=== PATIENT | female | born 1930 | race Caucasian/White ===

== ENCOUNTER 2018-02-10 14:19 | Emergency (ER) | payer MEDICARE, BC ==
[2018-02-10 15:51] LABS: CHLORIDE,CL 105 mmol/L (98-107); SODIUM,NA 143 mmol/L (136-145)
--- NOTE | 2018-02-10 17:25 | EDM.PDOC ---
ED HPI GENERAL MEDICAL PROBLEM - General Chief Complaint: General Stated Complaint: NOT FEELING GOOD Time Seen by Provider: 02/10/18 14:35 Source of Information: Reports: Patient - History of Present Illness INITIAL COMMENTS - FREE TEXT/NARRATIVE: Pt. presents to ER with complaints that she "doesn't feel good". States that she is unable to relay what specific systems she is having. States that she feels somewhat fatigued, possibly a bit globally weak. No fever or chills. Denies cough or dyspnea. No chest pain. difficulty with speech or walking. Denies any issues with recent illness. - Related Data Allergies Allergy/AdvReac Type Severity Reaction Status Date / Time amitriptyline [From Triavil] Allergy Rash Verified 02/10/18 14:43 apixaban [From Eliquis] Allergy Confusion Verified 02/10/18 14:43 brimonidine [From Alphagan P] Allergy Cannot Verified 02/10/18 14:43 Remember celecoxib [From Celebrex] Allergy Headache Verified 02/10/18 14:43 cephalexin [From Keflex] Allergy Cannot Verified 02/10/18 14:43 Remember ethinyl estradiol Allergy Rash Verified 02/10/18 14:43 [From Demulen (28)] ethynodiol Allergy Rash Verified 02/10/18 14:43 [From Demulen (28)] latanoprost [From Xalatan] Allergy Cannot Verified 02/10/18 14:43 Remember milk Allergy Vomiting Verified 02/10/18 14:43 Penicillins Allergy Rash Verified 02/10/18 14:43 perflutren [From Definity] Allergy Cannot Verified 02/10/18 14:43 Remember perphenazine [From Triavil] Allergy Rash Verified 02/10/18 14:43 Sulfa (Sulfonamide Allergy Cannot Verified 02/10/18 14:43 Antibiotics) Remember triamcinolone Allergy Rash Verified 02/10/18 14:43 pet dander Allergy Cannot Uncoded 02/10/18 14:43 Remember Home Meds: Home Meds Acetaminophen [Tylenol Extra Strength] 1,000 mg PO Q8H PRN 02/10/18 [History] Calcium Carb & Citrate/Vit D3 [Citracal + D ER] 1 each PO BID 02/10/18 [History] Cholecalciferol (Vitamin D3) [Vitamin D3] 1,000 unit PO DAILY 02/10/18 [History] Cholestyramine (With Sugar) [Questran Powder] 4 gm PO DAILY 02/10/18 [History] Levothyroxine [Sythroid] 100 mcg PO DAILY 02/10/18 [History] Loratadine [Claritin] 10 mg PO DAILY PRN 02/10/18 [History] Multivits,Ca,Minerals/Iron/FA [Thera-M] 1 each PO DAILY 02/10/18 [History] Sertraline [Zoloft] 75 mg PO DAILY 02/10/18 [History] Travoprost [Travatan Z] 1 drop EYEBOTH BEDTIME 02/10/18 [History] traZODone HCl [Trazodone HCl] 100 mg PO BEDTIME 02/10/18 [History] Past Medical History Cardiovascular History: Reports: High Cholesterol, Other (See Below) Other Cardiovascular History: aortic insufficiency. 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 Psychiatric History: Reports: Anxiety, Depression Endocrine/Metabolic History: Reports: Hypothyroidism, Osteopenia Oncologic (Cancer) History: Reports: Thyroid - Infectious Disease History Infectious Disease History: Reports: Shingles - Past Surgical History HEENT Surgical History: Reports: Cataract Surgery GI Surgical History: Reports: Cholecystectomy, Other (See Below) Other GI Surgeries/Procedures: umbilical hernia Female Surgical History: Reports: Breast Biopsy, Section Endocrine Surgical History: Reports: Thyroidectomy Musculoskeletal Surgical History: Reports: Knee Replacement Social & Family History - Tobacco Use Smoking Status *Q: Never Smoker - Recreational Drug Use Recreational Drug Use: No ED ROS GENERAL - Review of Systems Review Of Systems: ROS reveals no pertinent complaints other than HPI. ED EXAM, GENERAL - Physical Exam Exam: See Below General Appearance: Alert, WD/WN, No Apparent Distress Eye Exam: Bilateral Eye: EOMI, PERRL Ears: Normal External Exam, Normal Canal, Hearing Grossly Normal, Normal TMs Ear Exam: Bilateral Ear: Auricle Normal, Canal Normal, TM normal Nose: Normal Inspection, Normal Mucosa, No Blood Throat/Mouth: Normal Inspection, Normal Lips, Normal Teeth, Normal Gums, Normal Oropharynx, Normal Voice, No Airway Compromise Head: Atraumatic, Normocephalic Neck: Normal Inspection, Supple, Non-Tender, Full Range of Motion Respiratory/Chest: No Respiratory Distress, Lungs Clear, Normal Breath Sounds, No Accessory Muscle Use, Chest Non-Tender Cardiovascular: Normal Peripheral Pulses, Regular Rate, Rhythm, No Edema, No Gallop, No JVD, No Murmur, No Rub Peripheral Pulses: 4+: Radial (L), Radial (R) GI/Abdominal: Normal Bowel Sounds, Soft, Non-Tender, No Organomegaly, No Distention, No Abnormal Bruit, No Mass Back Exam: Normal Inspection, Full Range of Motion, NT Extremities: Normal Inspection, Normal Range of Motion, Non-Tender, Normal Capillary Refill, No Pedal Edema Neurological: Alert, Oriented, CN II-XII Intact, Normal Cognition, Normal Gait, Normal Reflexes, No Motor/Sensory Deficits Psychiatric: Normal Affect, Normal Mood Skin Exam: Warm, Dry, Intact, Normal Color, No Rash Lymphatic: No Adenopathy Course - Vital Signs Last Recorded V/S: Last Vital Signs Temp 37.5 C 02/10/18 14:25 Pulse 75 02/10/18 14:25 Resp 16 02/10/18 14:25 BP 137/88 02/10/18 14:25 Pulse Ox 95 02/10/18 14:25 - Orders/Labs/Meds Labs: Laboratory Tests 02/10/18 02/10/18 02/10/18 Range/Units 15:05 15:13 15:13 WBC 3.9 L (4.0-10.0) x10^3/uL RBC 3.71 L (4.00-5.50) x10^6/uL Hgb 11.7 L (12.0-16.0) g/dL Hct 36.3 (33.0-47.0) % MCV 97.8 H (78.0-93.0) fL MCH 31.5 (26.0-32.0) pg MCHC 32.2 (32.0-36.0) g/dL RDW Coeff of [place] 13.3 (10.0-15.0) % Plt Count 130 (130-400) x10^3/uL Neut % (Auto) 44.2 L (50.0-80.0) % Lymph % (Auto) 39.9 (25.0-50.0) % [place] % (Auto) 13.1 H (2.0-11.0) % Eos % (Auto) 2.3 (0.0-4.0) % Baso % (Auto) 0.5 (0.2-1.2) % Sodium 143 (136-145) mmol/L Potassium 3.8 (3.5-5.1) mmol/L Chloride 105 (98-107) mmol/L Carbon Dioxide 30 (21-32) mmol/L Anion Gap 11.8 (10-20) mmol/L BUN 19 H (7-18) mg/dL Creatinine 0.8 (0.55-1.02) mg/dL Est Cr Clr Drug Dosing 35.97 mL/min Estimated GFR (MDRD) > 60 Glucose 89 (74-106) mg/dL Lactic Acid (0.4-2.0) mmol/L Calcium 8.6 (8.5-10.1) mg/dL Corrected Calcium 9.08 (8.5-10.1) mg/dL Phosphorus 3.1 (2.6-4.7) mg/dL Magnesium 1.7 L (1.8-2.4) mg/dL Total Bilirubin 0.4 (0.2-1.0) mg/dL AST 29 (15-37) U/L ALT 30 (14-59) U/L Alkaline Phosphatase 83 (46-116) U/L Troponin I < 0.017 (<=0.056) ng/mL C-Reactive Protein 1.4 H (<=0.9) mg/dL NT-Pro-B Natriuret Pep 111 (<=450) pg/mL Total Protein 7.6 (6.4-8.2) g/dL Albumin 3.4 (3.4-5.0) g/dL Globulin 4.2 Albumin/Globulin Ratio 0.81 TSH, Ultra Sensitive 2.688 (0.358-3.74) uIU/mL Urine Color Yellow (YELLOW) Urine Appearance Slightly cloudy H (CLEAR) Urine pH 5.0 (5.0-8.0) Ur Specific [place] 1.010 Urine Protein Negative (NEGATIVE) mg/dL Urine Glucose (UA) Negative (NEGATIVE) mg/dL Urine Ketones Negative (NEGATIVE) mg/dL Urine Occult Blood Negative (NEGATIVE) Urine Nitrite Negative (NEGATIVE) Urine Bilirubin Negative (NEGATIVE) Urine Urobilinogen 0.2 (0.2) EU/dL Ur Leukocyte Esterase Negative (NEGATIVE) Urine RBC 0-5 (NOT SEEN) /HPF Urine WBC 0-5 (NOT SEEN) /HPF Ur Squamous Epith Cells Rare (NEGATIVE) /HPF Amorphous Sediment Rare Urine Bacteria Rare (NEGATIVE) /HPF Hyaline Casts Occasional H (NEGATIVE) /HPF Urine Mucus Few H (NEGATIVE) /LPF 02/10/18 Range/Units 15:13 WBC (4.0-10.0) x10^3/uL RBC (4.00-5.50) x10^6/uL Hgb (12.0-16.0) g/dL Hct (33.0-47.0) % MCV (78.0-93.0) fL MCH (26.0-32.0) pg MCHC (32.0-36.0) g/dL RDW Coeff of [place] (10.0-15.0) % Plt Count (130-400) x10^3/uL Neut % (Auto) (50.0-80.0) % Lymph % (Auto) (25.0-50.0) % [place] % (Auto) (2.0-11.0) % Eos % (Auto) (0.0-4.0) % Baso % (Auto) (0.2-1.2) % Sodium (136-145) mmol/L Potassium (3.5-5.1) mmol/L Chloride (98-107) mmol/L Carbon Dioxide (21-32) mmol/L Anion Gap (10-20) mmol/L BUN (7-18) mg/dL Creatinine (0.55-1.02) mg/dL Est Cr Clr Drug Dosing mL/min Estimated GFR (MDRD) Glucose (74-106) mg/dL Lactic Acid 0.9 (0.4-2.0) mmol/L Calcium (8.5-10.1) mg/dL Corrected Calcium (8.5-10.1) mg/dL Phosphorus (2.6-4.7) mg/dL Magnesium (1.8-2.4) mg/dL Total Bilirubin (0.2-1.0) mg/dL AST (15-37) U/L ALT (14-59) U/L Alkaline Phosphatase (46-116) U/L Troponin I (<=0.056) ng/mL C-Reactive Protein (<=0.9) mg/dL NT-Pro-B Natriuret Pep (<=450) pg/mL Total Protein (6.4-8.2) g/dL Albumin (3.4-5.0) g/dL Globulin Albumin/Globulin Ratio TSH, Ultra Sensitive (0.358-3.74) uIU/mL Urine Color (YELLOW) Urine Appearance (CLEAR) Urine pH (5.0-8.0) Ur Specific [place] Urine Protein (NEGATIVE) mg/dL Urine Glucose (UA) (NEGATIVE) mg/dL Urine Ketones (NEGATIVE) mg/dL Urine Occult Blood (NEGATIVE) Urine Nitrite (NEGATIVE) Urine Bilirubin (NEGATIVE) Urine Urobilinogen (0.2) EU/dL Ur Leukocyte Esterase (NEGATIVE) Urine RBC (NOT SEEN) /HPF Urine WBC (NOT SEEN) /HPF Ur Squamous Epith Cells (NEGATIVE) /HPF Amorphous Sediment Urine Bacteria (NEGATIVE) /HPF Hyaline Casts (NEGATIVE) /HPF Urine Mucus (NEGATIVE) /LPF Departure - Departure Time of Disposition: 16:45 Disposition: Home, Self-Care 01 Clinical Impression: Fatigue - Discharge Information Instructions: Fatigue Referrals: PCP,Not In Area [Primary Care Provider] - Forms: ED Department Discharge Additional Instructions: Return to ER if you have any chest pain, shortness of breath, lightheadedness, difficulty with speech, or trouble walking.
== END 2018-02-10 16:45 | disposition home or self-care (01) ==
LOC: VM.ED 14:19
DX: R53.83 Other fatigue (principal); E78.00 Pure hypercholesterolemia, unspecified; K21.9 Gastro-esophageal reflux disease without esophagitis; F41.9 Anxiety disorder, unspecified; F32.9 Major depressive disorder, single episode, unspecified; Z88.8 Allergy status to other drugs, medicaments and biological substances; Z88.1 Allergy status to other antibiotic agents; Z91.011 Allergy to milk products; Z88.2 Allergy status to sulfonamides
CPT/HCPCS: 36415; 71046; 80053; 81001; 83605; 83735; 83880; 84100; 84443; 84484; 85025; 86140; 99284; 99284-GF